=== PATIENT | male | born 1950 | race Caucasian/White ===

== ENCOUNTER 2018-05-21 09:58 | Observation (INO) | payer BC, OTHER ==
[~2018-05-21] VITALS: Ht 172.7 cm; Wt 81.6 kg
[2018-05-21] VITALS (7 sets, daily range): BP systolic 71–124; BP diastolic 41–78
[~2018-05-21 09:58] MED LIST: BUDE10.22 IH; CHLORHEXIDINE 0.12% 15 ML MOUTHWASH. SWSP ONE; CLINDAMYCIN 900MG PREMIX 50 ML IV PRN; DILT240C2 PO; GABA300C18 PO; HYDROmorphone 2 MG/ML VIAL IV PRN; IPRA3AMP29 NEB; IV RINGERS,LACTATED 1000ML 1,000 ML IV SCH; LIDOCAINE 1% PF 2 ML VIAL. ID PRN; METH500T7 PO; MONT10TA6 PO; MORPHINE SULFATE 2 MG/ML VIAL. IV PRN; ONDANSETRON PF 4 MG/2 ML VIAL. IV PRN; PROCHLORPERAZINE 10 MG/2 ML VIAL. IV PRN; RANI150T2 PO; RIVA10TA PO; ROPI0.254 PO; SERT100T PO; TAMS0.4C97 PO; TRAZ-118 PO; VENTOLIN HFA18 GM INH; fentaNYL PF VIAL 100 MCG/2 ML VIAL IV PRN
[2018-05-21] MEDS ORDERED: GELATIN SPONGE SIZE 100. ONE (10:51)
[2018-05-21] MEDS ORDERED: BUPIVAC MPF-EPI 0.5%-1:200000 30 ML VIAL. ONE (10:51)
[2018-05-21] MEDS ORDERED: CHLORHEXIDINE 0.12% 15 ML MOUTHWASH. ONE (10:53)
[2018-05-21] MEDS ORDERED: LIDOCAINE 2% PF 5 ML VIAL. ONE (11:12)
[2018-05-21] MEDS ORDERED: DEXAMETHASONE SOD PHOS 20 MG/5 ML VIAL. ONE (11:12)
[2018-05-21] MEDS ORDERED: PROPOFOL 20 ML IV ONE (11:12)
[2018-05-21] MEDS ORDERED: fentaNYL PF VIAL 100 MCG/2 ML VIAL ONE ×2 (11:12→13:15)
[2018-05-21] MEDS ORDERED: ONDANSETRON PF 4 MG/2 ML VIAL. ONE (11:12)
[2018-05-21] MEDS ORDERED: ROCURONIUM 50 MG/5 ML VIAL. ONE (11:12)
[2018-05-21] MEDS ORDERED: OXYMETAZOLINE 0.05% NASAL SPRAY 30ML BOTTLE. NS ONE (11:30)
[2018-05-21] MEDS ORDERED: ALBUTEROL SULFATE 2.5 MG/3 ML NEBU. ONE (11:59)
[2018-05-21] MEDS ORDERED: ALBUTEROL SULFATE 2.5 MG/3 ML NEBU. NEB ONE (12:15)
[2018-05-21] MEDS ORDERED: FAMOTIDINE 20 MG/2 ML VIAL ONE (12:18)
[2018-05-21] MEDS ORDERED: ePHEDrine PF IN SALINE 50 MG/10 ML SYRINGE. IV ONE (12:22)
[2018-05-21] MEDS ORDERED: 0.9 % SODIUM CHLORIDE 20 ML VIAL. IJ ONE (12:23)
[2018-05-21] MEDS ORDERED: BUPIVAC MPF-EPI 0.5%-1:200000 30 ML VIAL. INJ ONE (12:27)
[2018-05-21] MEDS ORDERED: SEVOFLURANE 31 TO 60 MINUTES. IH ONE (12:59)
--- NOTE | 2018-05-21 13:20 | PDOC4 ---
OPERATIVE NOTE Date: Date: May 21, 2018 Pre-Op Diagnosis: COPD Caries, non restorable 11,13,21,26 Post-Op Diagnosis: COPD Caries, non restorable 11,13,21,26 Procedure Performed: extraction of COPD non restorable 11,13,21,26 Surgeon: angella Anesthesia Type: lynda Blood Loss: 20 Specimans Obtained: teeth disposed of in OR Findings: Caries, non restorable 11,13,21,26 Complications: none noted in OR Operative Note: COPD extraction of carious, non restorable 11,13,21,26 WHITNEY HARRIS DMD May 21, 2018 13:20
[2018-05-21] MEDS: fentaNYL PF VIAL 100 MCG/2 ML VIAL IV PRN ×2 (13:32→13:57)
[2018-05-21] MEDS ORDERED: ALBUTEROL SULFATE 2.5 MG/3 ML NEBU. NEB PRN (14:15)
--- NOTE | 2018-05-21 14:44 | PDOC1 ---
History and Physical Date of Admission Date of Admission DATE: 05/21/18 TIME: 14:38 Identification/Chief Complaint Chief Complaint post op observation Source Source: Caregiver, Chart review, Patient History of Present Illness History of Present Illness Patient is requested admission to hospital service for postop observation after extraction of dental caries 4, both uppers, Teeth extraction done by DR Keenan. History of COPD on inhalers, never smoker. Obstructive sleep apnea and chronic O2 dependent 2 L nasal cannula at home. He is also on Xarelto for unclear reasons or at least unknown to patient maybe has an indwelling pacer? Also has a history of sleep apnea. He mostly complains of right hip pain and he is scheduled to have surgery next week in [place] for that. Otherwise doing okay Munching on ice chips. I will start a GI soft. No labs needed. Observation status. I recommended IS Seen at PACU Past Medical History Pulmonary: Bronchitis, COPD, Other (obstructive sleep apnea) Musculoskeletal: Osteoarthritis Past Surgical History Past Surgical History: No pertinent history Family History Family History: Family History Unknown Social History Smoke: No ALCOHOL: none Drugs: None Current Medications Current Medications Current Medications Ondansetron HCl (Zofran) 4 mg PRN Q6HRS PRN IV NAUSEA/VOMITING; Start 05/21/18 at 07:00; Stop 05/22/18 at 06:59 Fentanyl Citrate (Fentanyl 2ml Vial) 25 mcg PRN Q5MIN PRN IV MILD PAIN; Start 05/21/18 at 07:00; Stop 05/22/18 at 06:59 Fentanyl Citrate (Fentanyl 2ml Vial) 50 mcg PRN Q5MIN PRN IV MODERATE TO SEVERE PAIN Last administered on 05/21/18at 13:57; Start 05/21/18 at 07:00; Stop 05/22/18 at 06:59 Morphine Sulfate (Morphine Sulfate) 1 mg PRN Q10MIN PRN IV SEVERE PAIN; Start 05/21/18 at 07:00; Stop 05/22/18 at 06:59 Ringer's Solution 1,000 ml @ 30 mls/hr Q24H IV ; Start 05/21/18 at 07:00; Stop 05/21/18 at 18:59 Lidocaine HCl (Xylocaine-Mpf 1% 2ml Vial) 2 ml PRN 1X PRN ID PRIOR TO IV START ; Start 05/21/18 at 07:00; Stop 05/22/18 at 06:59 Hydromorphone HCl (Dilaudid) 0.5 mg PRN Q10MIN PRN IV SEV PAIN, Second choice; Start 05/21/18 at 07:00; Stop 05/22/18 at 06:59 Prochlorperazine Edisylate (Compazine) 5 mg PACU PRN PRN IV NAUSEA, MRX1; Start 05/21/18 at 07:00; Stop 05/22/18 at 06:59 Clindamycin Phosphate 50 ml @ 100 mls/hr 1X PREOP PRN IV PRIOR TO PROCEDURE Last administered on 05/21/18at 12:24; Start 05/21/18 at 06:00; Stop 05/21/18 at 18:00 Chlorhexidine Gluconate (Peridex) 15 ml 1X ONCE SWSP ; Start 05/21/18 at 06:00 ; Stop 05/21/18 at 06:01; Status DC Propofol 20 ml @ As Directed STK-MED ONCE IV ; Start 05/21/18 at 11:12; Stop at 11:14; Status DC Dexamethasone Sodium Phosphate (Decadron) 20 mg STK-MED ONCE .ROUTE ; Start at 11:12; Stop 05/21/18 at 11:15; Status DC Lidocaine HCl (Lidocaine Pf 2% Vial) 5 ml STK-MED ONCE .ROUTE ; Start 05/21/18 at 11:12; Stop 05/21/18 at 11:15; Status DC Ondansetron HCl (Zofran) 4 mg STK-MED ONCE .ROUTE ; Start 05/21/18 at 11:12; Stop 05/21/18 at 11:15; Status DC Rocuronium [place] (Zemuron) 50 mg STK-MED ONCE .ROUTE ; Start 05/21/18 at 11:12 ; Stop 05/21/18 at 11:15; Status DC Fentanyl Citrate (Fentanyl 2ml Vial) 100 mcg STK-MED ONCE .ROUTE ; Start at 11:12; Stop 05/21/18 at 11:15; Status DC Oxymetazoline HCl (Afrin) 2 spray 1X ONCE NS ; Start 05/21/18 at 11:30; Stop at 11:31; Status DC Gelatin (Gelfoam Size 100) 1 each STK-MED ONCE .ROUTE ; Start 05/21/18 at 10:51 ; Stop 05/21/18 at 11:51; Status DC Bupivacaine HCl/ Epinephrine Bitart (Sensorcain-Mpf Epi 0.5%-1:[id number]) 30 ml STK -MED ONCE .ROUTE ; Start 05/21/18 at 10:51; Stop 05/21/18 at 11:52; Status DC Chlorhexidine Gluconate (Peridex) 15 ml STK-MED ONCE .ROUTE ; Start 05/21/18 at 10:53; Stop 05/21/18 at 11:53; Status DC Albuterol Sulfate (Ventolin Neb Soln) 2.5 mg STK-MED ONCE .ROUTE ; Start at 11:59; Stop 05/21/18 at 12:00; Status DC Albuterol Sulfate (Ventolin Neb Soln) 2.5 mg 1X ONCE NEB Last administered on 05/21/18at 12:00; Start 05/21/18 at 12:15; Stop 05/21/18 at 12:16; Status DC Famotidine (Pepcid Vial) 20 mg STK-MED ONCE .ROUTE ; Start 05/21/18 at 12:18; Stop 05/21/18 at 12:19; Status DC Ephedrine Sulfate (ePHEDrine PF IN SALINE SYRINGE) 50 mg STK-MED ONCE IV ; Start 05/21/18 at 12:22; Stop 05/21/18 at 12:23; Status DC Sodium Chloride (SODIUM CHLORIDE 20ml) 20 ml STK-MED ONCE IJ ; Start 05/21/18 at 12:23; Stop 05/21/18 at 12:24; Status DC Bupivacaine HCl/ Epinephrine Bitart (Sensorcain-Mpf Epi 0.5%-1:[id number]) 30 ml STK -MED ONCE INJ Last administered on 05/21/18at 12:27; Start 05/21/18 at 12:27; Stop 05/21/18 at 12:56; Status DC Sevoflurane (Ultane) 30 ml STK-MED ONCE IH ; Start 05/21/18 at 12:59; Stop 05/21 at 13:00; Status DC Fentanyl Citrate (Fentanyl 2ml Vial) 100 mcg STK-MED ONCE .ROUTE ; Start at 13:15; Stop 05/21/18 at 13:16; Status DC Gabapentin (Neurontin) 300 mg BID PO ; Start 05/21/18 at 21:00 Albuterol/ Ipratropium (Duoneb) 3 ml DAILY08 NEB ; Start 05/22/18 at 08:00; Status UNV Methocarbamol (Robaxin) 500 mg QID PO ; Start 05/21/18 at 17:00; Status UNV Rivaroxaban (Xarelto) 10 mg BID PO ; Start 05/21/18 at 21:00; Status UNV Ropinirole HCl (Requip) 0.25 mg HS PO ; Start 05/21/18 at 21:00; Status UNV Tamsulosin HCl (Flomax) 0.4 mg DAILY PO ; Start 05/22/18 at 09:00 Trazodone HCl (Desyrel) 50 mg HS PO ; Start 05/21/18 at 21:00 Albuterol Sulfate (Ventolin Neb Soln) 2.5 mg PRN Q6HRS PRN NEB SHORTNESS OF BREATH; Start 05/21/18 at 14:15 Non-Formulary Medication (Budesonide/ Formoterol Fumarate (Symbicort 80-4.5 Mcg Inhaler)) 1 puff BID IH ; Start 05/21/18 at 21:00; Status UNV Non-Formulary Medication (Diltiazem Hcl (Cardizem Cd)) 240 mg DAILY PO ; Start 05/22/18 at 09:00; Status UNV Montelukast Sodium (Singulair) 10 mg PRN QHS PRN PO ALLERGIES; Start 05/21/18 at 21:00 Famotidine (Pepcid) 20 mg DAILY PO ; Start 05/22/18 at 09:00 Sertraline HCl (Zoloft) 100 mg DAILY PO ; Start 05/22/18 at 09:00 Budesonide (Pulmicort) 0.5 mg RTBID NEB ; Start 05/21/18 at 20:00 Albuterol Sulfate (Ventolin Neb Soln) 2.5 mg RTQID NEB ; Start 05/21/18 at 20:00 Active Scripts Active Reported Xarelto (Rivaroxaban) 10 Mg Tablet 10 Mg PO BID Ropinirole Hcl 0.25 Mg Tablet 0.25 Mg PO HS Flomax (Tamsulosin Hcl) 0.4 Mg Cap.er.24h 0.4 Mg PO DAILY Trazodone Hcl 50 Mg Tablet 50 Mg PO HS Zoloft (Sertraline Hcl) 100 Mg Tablet 100 Mg PO DAILY Singulair Tablet (Montelukast Sodium) 10 Mg Tablet 10 Mg PO HS PRN Symbicort 80-4.5 Mcg Inhaler (Budesonide/Formoterol Fumarate) 10.2 Gm Hfa.aer.ad 1 Puff IH BID Duoneb 0.5-3(2.5) Mg/3 Ml (Albuterol/Ipratropium) 3 Ml Ampul.neb 3 Ml NEB DAILY08 Ventolin Hfa Inhaler (Albuterol Sulfate) 18 Gm Hfa.aer.ad 2 Puff INH QID Ranitidine Hcl 150 Mg Tablet 150 Mg PO DAILY Methocarbamol 500 Mg Tablet 500 Mg PO QID Cardizem Cd (Diltiazem Hcl) 240 Mg Cap.er.24h 240 Mg PO DAILY Gabapentin 300 Mg Capsule 300 Mg PO BID Allergies Allergies: Coded Allergies: Penicillins (Verified Allergy, Unknown, Unknown, 05/18/18) ROS Review of System As per history of present illness, the rest of ROS 14 point negative Physical Exam General: No acute distress HEENT: Atraumatic, PERRLA, EOMI Lungs: Clear to auscultation, Normal air movement Heart: S1S2, RRR, no thrills, no rubs, no gallops, no murmurs Cardiovascular: S1, S2 Abdomen: Normal bowel sounds, Soft, No tenderness, No hepatosplenomegaly, No masses Male Genitals Exam: normal genitalia, normal prostate Rectal Exam: not examined PELVIC: Nml ext genitalia Extremities: No clubbing, No cyanosis, No edema, Normal pulses, No tenderness/ swelling Skin: No rashes, No breakdown, No significant lesion Neuro: Normal gait, Normal speech, Strength at 5/5 X4 ext, Normal tone, Sensation intact, Cranial nerves 3-12 NL, Reflexes 2+ Psych/Mental Status: Mental status NL, Mood NL Vitals Vitals Vital Signs Date Time Temp Pulse Resp B/P (MAP) Pulse Ox O2 Delivery O2 Flow Rate FiO2 05/21/18 13:57 12 95 Nasal Cannula 3.0 05/21/18 13:36 98.6 81 119/48 98.6 VTE Prophylaxis Ordered VTE Prophylaxis Devices: Yes VTE Pharmacological Prophylaxi: Yes Assessment/Plan Assessment/Plan Dental caries s/p extraction x 4 teeth 05/21/18 COPD, on home O2 dependent Obstructive sleep apnea history Right hip arthritis-scheduled for surgery at [place] next week Currently on Xarelto PLAN: GI Soft I have reconciled home meds Seen at PACU Full code Home tomorrow if no issues over night Incentive spirometry ISAURA REYES MD May 21, 2018 14:43
[2018-05-21] MEDS ORDERED: ANTI-COAG MONITOR BY PHARMACY. MC PRN (15:00)
--- NOTE | 2018-05-21 15:24 | OP ---
DATE OF SURGERY: 05/21/2018 OPERATING SERVICE: manufacturing plant technician. ATTENDING PHYSICIAN: Ruslan Harris DMD, [id number]. PREOPERATIVE DIAGNOSES: Severe chronic obstructive pulmonary disease, multiple comorbidities, hep C and also he has caries, nonrestorable teeth 11 13, 21, 26. POSTOPERATIVE DIAGNOSES: Severe chronic obstructive pulmonary disease, multiple comorbidities, hep C and also he has caries, nonrestorable teeth 11 13 and 21, 26. PROCEDURES PERFORMED: Extraction of 11, 13, 21, 26. BRIEF HISTORY: The patient was referred to our clinic by the [place] for removal of these nonrestorable teeth. Considering his severe COPD and procedure in our clinic appeared to be an ideal resolution. This was discussed with the patient for an outpatient extraction at . The patient was affable with our plan. History and physical was performed and a permit was obtained. ESTIMATED BLOOD LOSS: Approximately 20 mL. SPECIMEN SENT: None. DRAINS PLACED: None. COMPLICATIONS: None noted at the time of surgery. DESCRIPTION OF PROCEDURE: After the history and physical was updated in the preoperative holding area, the patient was transported by the Anesthesia Service to the operating suite, placed in the supine position. General anesthesia was induced, and the patient was then intubated with an oral IBETH which was secured to the right face. A timeout was initiated. All perioperative staff in agreement. A moist throat pack was placed. Peridex was placed in the mouth and the teeth were cleansed. Peridex was then suctioned. The surgery began with administration of 12 mL of 0.5% Marcaine, 1:200,000 epinephrine. An additional 12 mL were administered throughout the procedure. Surgery began in the upper quadrant with a 15 blade and a full thickness mucoperiosteal flap that was reflected buccally at 11 13, 21 and 26. Teeth were removed with elevators, forceps and rongeurs and curettage, and a bone file was employed to smooth the bony alveolus. The sites were then lavaged and curetted and suctioned with copious normal sterile saline. Sites were then packed with Gelfoam and oversewn with 3-0 chromic gut sutures in a [id number] fashion for each site. The oral cavity was then lavaged and suctioned. The moistened throat pack was removed. An OG was passed and the stomach was decompressed and the patient was then returned to the care of Anesthesia where he was awakened and extubated without complication and transported by the Anesthesia Service to the PACU without complication. RUSLAN HARRIS DMD, MD DR: SARA/prisca JOB#: [id number] / [id number] RADHA
[2018-05-21] MEDS ORDERED: RIVAROXABAN 10 MG TABLET. PO SCH (17:00)
[2018-05-21] MEDS: METHOCARBAMOL 500 MG TABLET PO SCH ×2 (17:04→20:41)
[2018-05-21] MEDS: HYDROcodone/APAP 5/325MG 1 TAB TABLET PO PRN ×2 (17:25→22:01)
[2018-05-21] MEDS: BUDESONIDE 0.5 MG/2 ML NEBU. NEB SCH (20:13)
[2018-05-21] MEDS: ALBUTEROL SULFATE 2.5 MG/3 ML NEBU. NEB SCH (20:13)
[2018-05-21] MEDS: GABAPENTIN 300 MG CAPSULE. PO SCH (20:41)
[2018-05-21] MEDS ORDERED: NON FORMULARY ITEM (Budesonide/Formoterol Fumarate (Symbicort 80-4.5 Mcg Inhaler) 1 PUFF) IH SCH (21:00)
[2018-05-21] MEDS ORDERED: rOPINIRole 0.25 MG TABLET. PO SCH (21:00)
[2018-05-21] MEDS ORDERED: traZODone 50 MG TABLET. PO SCH (21:00)
[2018-05-21] MEDS ORDERED: MONTELUKAST SODIUM 10 MG TABLET. PO PRN (21:00)
[2018-05-22 03:00] VITALS: BP 133/55
[2018-05-22 07:00] VITALS: BP 120/58
[2018-05-22] MEDS: ALBUTEROL SULFATE 2.5 MG/3 ML NEBU. NEB SCH ×2 (07:40→12:32)
[2018-05-22] MEDS: BUDESONIDE 0.5 MG/2 ML NEBU. NEB SCH (07:43)
[2018-05-22] MEDS ORDERED: IPRATRPIUM/ALBUTEROL 0.5/2.5MG 3 ML NEBU. NEB SCH (08:00)
[2018-05-22] MEDS: GABAPENTIN 300 MG CAPSULE. PO SCH (08:58)
[2018-05-22] MEDS: METHOCARBAMOL 500 MG TABLET PO SCH ×2 (08:59→12:53)
[2018-05-22] MEDS: HYDROcodone/APAP 5/325MG 1 TAB TABLET PO PRN (08:59)
[2018-05-22] MEDS ORDERED: FAMOTIDINE 20 MG TABLET. PO SCH (09:00)
[2018-05-22] MEDS ORDERED: SERTRALINE 50 MG TABLET. PO SCH (09:00)
[2018-05-22] MEDS ORDERED: TAMSULOSIN 0.4 MG CAP.ER.24H. PO SCH (09:00)
[2018-05-22 11:00] VITALS: BP 124/64
--- NOTE | 2018-05-22 11:29 | PDOC ---
PROGRESS NOTES Chief Complaint Chief Complaint Dental caries s/p extraction x 4 teeth 05/21/18 COPD, on home O2 dependent Obstructive sleep apnea history Right hip arthritis-scheduled for surgery at [place] next week Currently on Xarelto History of Present Illness History of Present Illness Mr. Hernandez is a 67 yo male presented for extraction of 4 teeth due to dental caries. Seen by Dr. Colmenares. Patient seen and examined at bedside. On 3L per N/C, patient uses oxygen at home, hx of COPD. He denies worsening shortness of breath and has no new complaints. Vitals Vitals Vital Signs Date Time Temp Pulse Resp B/P (MAP) Pulse Ox O2 Delivery O2 Flow Rate FiO2 05/22/18 08:59 Nasal Cannula 3.0 05/22/18 08:58 68 120/58 05/22/18 08:48 98 05/22/18 07:00 98.6 18 98.6 Physical Exam General: Alert, Oriented X3, No acute distress Heart: Regular rate, No murmurs Lungs: Clear Abdomen: Normal bowel sounds, Soft, No tenderness, No hepatosplenomegaly, No masses Extremities: No clubbing, No cyanosis, No edema, Normal pulses, No tenderness/ swelling Skin: No rashes, No significant lesion Review of Systems Review of Systems Denies shortness of breath Denies pain Assessment and Plan Assessmemt and Plan Assessment: Dental caries s/p extraction x 4 teeth 05/21/18 COPD, on home O2 dependent Obstructive sleep apnea history Right hip arthritis-scheduled for surgery at [place] next week Currently on Xarelto Plan: Discharge today Prescribed lortab and augmentin Continue to monitor respiratory status Follow up with PCP outpatient Return to ED with worsening symptoms Comment Review of Relevant I have reviewed the following items kanwal (where applicable) has been applied. Medications Current Medications Ondansetron HCl (Zofran) 4 mg PRN Q6HRS PRN IV NAUSEA/VOMITING; Start 05/21/18 at 07:00; Stop 05/21/18 at 15:54; Status DC Fentanyl Citrate (Fentanyl 2ml Vial) 25 mcg PRN Q5MIN PRN IV MILD PAIN; Start 05/21/18 at 07:00; Stop 05/21/18 at 15:54; Status DC Fentanyl Citrate (Fentanyl 2ml Vial) 50 mcg PRN Q5MIN PRN IV MODERATE TO SEVERE PAIN Last administered on 05/21/18at 13:57; Start 05/21/18 at 07:00; Stop 05/21/18 at 15:54; Status DC Morphine Sulfate (Morphine Sulfate) 1 mg PRN Q10MIN PRN IV SEVERE PAIN; Start 05/21/18 at 07:00; Stop 05/21/18 at 15:54; Status DC Ringer's Solution 1,000 ml @ 30 mls/hr Q24H IV ; Start 05/21/18 at 07:00; Stop 05/21/18 at 15:54; Status DC Lidocaine HCl (Xylocaine-Mpf 1% 2ml Vial) 2 ml PRN 1X PRN ID PRIOR TO IV START ; Start 05/21/18 at 07:00; Stop 05/21/18 at 15:54; Status DC Hydromorphone HCl (Dilaudid) 0.5 mg PRN Q10MIN PRN IV SEV PAIN, Second choice; Start 05/21/18 at 07:00; Stop 05/21/18 at 15:54; Status DC Prochlorperazine Edisylate (Compazine) 5 mg PACU PRN PRN IV NAUSEA, MRX1; Start 05/21/18 at 07:00; Stop 05/21/18 at 15:54; Status DC Clindamycin Phosphate 50 ml @ 100 mls/hr 1X PREOP PRN IV PRIOR TO PROCEDURE Last administered on 05/21/18at 12:24; Start 05/21/18 at 06:00; Stop 05/21/18 at 18:00; Status DC Chlorhexidine Gluconate (Peridex) 15 ml 1X ONCE SWSP ; Start 05/21/18 at 06:00 ; Stop 05/21/18 at 06:01; Status DC Propofol 20 ml @ As Directed STK-MED ONCE IV ; Start 05/21/18 at 11:12; Stop at 11:14; Status DC Dexamethasone Sodium Phosphate (Decadron) 20 mg STK-MED ONCE .ROUTE ; Start at 11:12; Stop 05/21/18 at 11:15; Status DC Lidocaine HCl (Lidocaine Pf 2% Vial) 5 ml STK-MED ONCE .ROUTE ; Start 05/21/18 at 11:12; Stop 05/21/18 at 11:15; Status DC Ondansetron HCl (Zofran) 4 mg STK-MED ONCE .ROUTE ; Start 05/21/18 at 11:12; Stop 05/21/18 at 11:15; Status DC Rocuronium [place] (Zemuron) 50 mg STK-MED ONCE .ROUTE ; Start 05/21/18 at 11:12 ; Stop 05/21/18 at 11:15; Status DC Fentanyl Citrate (Fentanyl 2ml Vial) 100 mcg STK-MED ONCE .ROUTE ; Start at 11:12; Stop 05/21/18 at 11:15; Status DC Oxymetazoline HCl (Afrin) 2 spray 1X ONCE NS ; Start 05/21/18 at 11:30; Stop at 11:31; Status DC Gelatin (Gelfoam Size 100) 1 each STK-MED ONCE .ROUTE ; Start 05/21/18 at 10:51 ; Stop 05/21/18 at 11:51; Status DC Bupivacaine HCl/ Epinephrine Bitart (Sensorcain-Mpf Epi 0.5%-1:076884) 30 ml STK -MED ONCE .ROUTE ; Start 05/21/18 at 10:51; Stop 05/21/18 at 11:52; Status DC Chlorhexidine Gluconate (Peridex) 15 ml STK-MED ONCE .ROUTE ; Start 05/21/18 at 10:53; Stop 05/21/18 at 11:53; Status DC Albuterol Sulfate (Ventolin Neb Soln) 2.5 mg STK-MED ONCE .ROUTE ; Start at 11:59; Stop 05/21/18 at 12:00; Status DC Albuterol Sulfate (Ventolin Neb Soln) 2.5 mg 1X ONCE NEB Last administered on 05/21/18at 12:00; Start 05/21/18 at 12:15; Stop 05/21/18 at 12:16; Status DC Famotidine (Pepcid Vial) 20 mg STK-MED ONCE .ROUTE ; Start 05/21/18 at 12:18; Stop 05/21/18 at 12:19; Status DC Ephedrine Sulfate (ePHEDrine PF IN SALINE SYRINGE) 50 mg STK-MED ONCE IV ; Start 05/21/18 at 12:22; Stop 05/21/18 at 12:23; Status DC Sodium Chloride (SODIUM CHLORIDE 20ml) 20 ml STK-MED ONCE IJ ; Start 05/21/18 at 12:23; Stop 05/21/18 at 12:24; Status DC Bupivacaine HCl/ Epinephrine Bitart (Sensorcain-Mpf Epi 0.5%-1:246141) 30 ml STK -MED ONCE INJ Last administered on 05/21/18at 12:27; Start 05/21/18 at 12:27; Stop 05/21/18 at 12:56; Status DC Sevoflurane (Ultane) 30 ml STK-MED ONCE IH ; Start 05/21/18 at 12:59; Stop 05/21 at 13:00; Status DC Fentanyl Citrate (Fentanyl 2ml Vial) 100 mcg STK-MED ONCE .ROUTE ; Start at 13:15; Stop 05/21/18 at 13:16; Status DC Gabapentin (Neurontin) 300 mg BID PO Last administered on 05/22/18at 08:58; Start 05/21/18 at 21:00 Albuterol/ Ipratropium (Duoneb) 3 ml DAILY08 NEB ; Start 05/22/18 at 08:00; Status UNV Methocarbamol (Robaxin) 500 mg QID PO Last administered on 05/22/18at 08:59; Start 05/21/18 at 17:00 Rivaroxaban (Xarelto) 20 mg DAILYWSUP PO Last administered on 05/21/18at 17:04; Start 05/21/18 at 17:00 Ropinirole HCl (Requip) 0.25 mg HS PO Last administered on 05/21/18at 20:41; Start 05/21/18 at 21:00 Tamsulosin HCl (Flomax) 0.4 mg DAILY PO Last administered on 05/22/18at 08:58; Start 05/22/18 at 09:00 Trazodone HCl (Desyrel) 50 mg HS PO Last administered on 05/21/18at 20:41; Start 05/21/18 at 21:00 Albuterol Sulfate (Ventolin Neb Soln) 2.5 mg PRN Q6HRS PRN NEB SHORTNESS OF BREATH; Start 05/21/18 at 14:15 Non-Formulary Medication (Budesonide/ Formoterol Fumarate (Symbicort 80-4.5 Mcg Inhaler)) 1 puff BID IH ; Start 05/21/18 at 21:00; Status UNV Diltiazem HCl (Cardizem 24hr Cd) 240 mg DAILY PO Last administered on at 08:58; Start 05/22/18 at 09:00 Montelukast Sodium (Singulair) 10 mg PRN QHS PRN PO ALLERGIES; Start 05/21/18 at 21:00 Famotidine (Pepcid) 20 mg DAILY PO Last administered on 05/22/18at 08:59; Start 05/22/18 at 09:00 Sertraline HCl (Zoloft) 100 mg DAILY PO Last administered on 05/22/18at 08:59; Start 05/22/18 at 09:00 Budesonide (Pulmicort) 0.5 mg RTBID NEB Last administered on 05/22/18at 07:43; Start 05/21/18 at 20:00 Albuterol Sulfate (Ventolin Neb Soln) 2.5 mg RTQID NEB Last administered on at 07:40; Start 05/21/18 at 20:00 Info (Anti-Coagulation Monitoring By Pharmacy) 1 each PRN DAILY PRN MC SEE COMMENTS; Start 05/21/18 at 15:00 Acetaminophen/ Hydrocodone Bitart (Lortab 5/325) 1 tab PRN Q4HRS PRN PO PAIN Last administered on 05/22/18at 08:59; Start 05/21/18 at 17:15 Active Scripts Active Reported Xarelto (Rivaroxaban) 10 Mg Tablet 10 Mg PO BID Ropinirole Hcl 0.25 Mg Tablet 0.25 Mg PO HS Flomax (Tamsulosin Hcl) 0.4 Mg Cap.er.24h 0.4 Mg PO DAILY Trazodone Hcl 50 Mg Tablet 50 Mg PO HS Zoloft (Sertraline Hcl) 100 Mg Tablet 100 Mg PO DAILY Singulair Tablet (Montelukast Sodium) 10 Mg Tablet 10 Mg PO HS PRN Symbicort 80-4.5 Mcg Inhaler (Budesonide/Formoterol Fumarate) 10.2 Gm Hfa.aer.ad 1 Puff IH BID Duoneb 0.5-3(2.5) Mg/3 Ml (Albuterol/Ipratropium) 3 Ml Ampul.neb 3 Ml NEB DAILY08 Ventolin Hfa Inhaler (Albuterol Sulfate) 18 Gm Hfa.aer.ad 2 Puff INH QID Ranitidine Hcl 150 Mg Tablet 150 Mg PO DAILY Methocarbamol 500 Mg Tablet 500 Mg PO QID Cardizem Cd (Diltiazem Hcl) 240 Mg Cap.er.24h 240 Mg PO DAILY Gabapentin 300 Mg Capsule 300 Mg PO BID Vitals/I & O Vital Sign - Last 24 Hours 05/21/18 05/21/18 05/21/18 05/21/18 13:06 13:06 13:21 13:32 Temp 98.6 98.6 98.6 98.6 Pulse 82 97 Resp 15 15 15 B/P (MAP) 126/79 92/63 Pulse Ox 92 95 93 O2 Delivery Nasal Cannula Nasal Cannula Room Air Nasal Cannula Nasal Cannula O2 Flow Rate 3 3 3 3.0 05/21/18 05/21/18 05/21/18 05/21/18 13:36 13:57 14:45 14:50 Temp 98.6 98.6 98.6 98.6 Pulse 81 81 Resp 15 12 16 B/P (MAP) 119/48 103/49 Pulse Ox 95 95 95 O2 Delivery Nasal Cannula Nasal Cannula Nasal Cannula Nasal Cannula O2 Flow Rate 3.0 3.0 3.0 3.0 05/21/18 05/21/18 05/21/18 05/21/18 15:00 15:15 15:30 15:45 Temp 97.5 97.5 Pulse 71 82 83 80 Resp 16 B/P (MAP) 93/70 (78) 96/58 (71) 90/63 (72) 117/78 (91) Pulse Ox 96 O2 Delivery Nasal Cannula O2 Flow Rate 3.0 05/21/18 05/21/18 05/21/18 05/21/18 16:00 17:25 18:15 20:05 Pulse 76 80 B/P (MAP) 71/41 (51) 124/73 (90) O2 Delivery Room Air Nasal Cannula O2 Flow Rate 3.0 05/21/18 05/21/18 05/21/18 05/21/18 20:10 22:01 23:00 23:01 Temp 97.5 97.5 Pulse 65 Resp 18 B/P (MAP) 121/63 (82) Pulse Ox 96 96 O2 Delivery Room Air Nasal Cannula BiPAP/CPAP Nasal Cannula O2 Flow Rate 3.0 3.0 05/22/18 05/22/18 05/22/18 05/22/18 03:00 07:00 07:34 07:40 Temp 97.5 98.6 97.5 98.6 Pulse 76 68 Resp 18 18 B/P (MAP) 133/55 (81) 120/58 (78) Pulse Ox 95 96 98 O2 Delivery BiPAP/CPAP Room Air Nasal Cannula Nasal Cannula O2 Flow Rate 3.0 3.0 05/22/18 05/22/18 05/22/18 08:48 08:58 08:59 Pulse 68 B/P (MAP) 120/58 Pulse Ox 98 O2 Delivery Nasal Cannula Nasal Cannula O2 Flow Rate 3.0 3.0 Intake and Output 05/21/18 05/21/18 05/22/18 15:00 23:00 07:00 Intake Total 2350 ml 400 ml 120 ml Output Total 20 ml 900 ml Balance 2330 ml 400 ml -780 ml COLETTE GUERRERO III DO May 22, 2018 11:29
--- NOTE | 2018-05-22 20:35 | DS ---
DATE OF DISCHARGE: 05/22/2018 ADMISSION DIAGNOSES: Hypoxia, chronic obstructive pulmonary disease and dental caries. DISCHARGE DIAGNOSES: Postop extraction of 3 dental caries, resolving hypoxia. HOSPITAL COURSE: The patient is a pleasant 67-year-old male who has COPD, presented with toothache and was noted to have 3 abscessed teeth. We consulted oral maxillofacial surgeon, Dr. Ruslan Gill. The patient was taken for extraction of the infected teeth. This morning, I saw him and examined him. His heart tones were normal. His lungs were much clearer. He is feeling great. He was requesting discharge. I gave him scripts for some p.r.n. Lortab and Augmentin 875 mg b.i.d. for a week. We plan to discharge. DISPOSITION: Home. ACTIVITY: As tolerated. DIET: Low sodium. MEDICATIONS: Please see the MRAD. TOTAL TIME: 32 minutes. FANTAL Renan GUERRERO DO DR: CHANI/prisca JOB#: [id number] / [id number]
== END 2018-05-22 15:50 | disposition home or self-care (01) ==
LOC: SURG 09:58 → 4 NORTH 14:48
PROVIDERS: ADMIT Internal Medicine; ATTEND Dentist Oral and Maxillofacial Surgery
DX: K02.9 Dental caries, unspecified (principal); J44.9 Chronic obstructive pulmonary disease, unspecified; G47.33 Obstructive sleep apnea (adult) (pediatric); J40 Bronchitis, not specified as acute or chronic; M19.90 Unspecified osteoarthritis, unspecified site; M16.11 Unilateral primary osteoarthritis, right hip; Z99.81 Dependence on supplemental oxygen; B19.20 Unspecified viral hepatitis C without hepatic coma
CPT/HCPCS: 41899; 94640; 94760; 97161; 97166; 97535; A7015; G0378; G0379; J0171; J1100; J2001; J2405; J2704; J3010; J3490; J7613; J7626